=== PATIENT | female | born 1975 | race Hispanic/Latino ===

== ENCOUNTER 2018-08-29 16:18 | Emergency (ER) | payer OTHER ==
[2018-08-29 16:34] VITALS: O2SAT 100
[2018-08-29] MEDS ORDERED: Clindamycin 600mg/50ml D5W 600 MG/50 ML VIAL IVPB STA (17:18)
[2018-08-29] MEDS ORDERED: Tmp-Smz 800 mg-160 mg DS Tab PO STA (17:19)
[2018-08-29 17:34] LABS: BASO # 0.1 K/uL (0.0-0.2); BASO % 0.7 % (0.0-2.0); EOS # 0.2 K/uL (0.0-0.7); EOS % 2.6 % (0.0-4.0); HEMOGLOBIN 14.4 g/dL (12.0-16.0); LYMPH # 1.3 K/uL (1.0-4.3); LYMPH % 16.7 % (20.0-40.0); MEAN CORPUSCULAR HEMOGLOBIN 32.6 pg (27.0-31.0); MEAN PLATELET VOLUME 7.6 fl (7.2-11.7); MONO # 0.8 K/uL (0.0-0.8); MONO % 10.2 % (0.0-10.0); NEUT # 5.3 K/uL (1.8-7.0); NEUT % 69.8 % (50.0-75.0); RBC 4.42 Mil/uL (3.80-5.20); RED CELL DISTRIBUTION WIDTH 12.9 % (11.5-14.5); WHITE BLOOD COUNT 7.6 K/uL (4.8-10.8)
[2018-08-29 17:53] LABS: ALB/GLOB RATIO 1.4 (1.0-2.1); ALBUMIN 4.6 g/dL (3.5-5.0); ALT/SGPT 29 U/L (9-52); AST/SGOT 34 U/L (14-36); BLOOD UREA NITROGEN 10 mg/dl (7-17); CALCIUM 9.3 mg/dL (8.4-10.2); GFR NON-AFRICAN AMERICAN > 60
[2018-08-29] MEDS ORDERED: Tmp-Smz 800 mg-160 mg DS Tab ONE (17:59)
--- NOTE | 2018-08-29 19:26 | ED PDOC ---
HPI: Skin/Bite Injury Chief Complaint (Nursing): Bite Chief Complaint (Provider): Bite History Per: Patient History/Exam Limitations: no limitations Onset/Duration Of Symptoms: Days (X2) Additional Complaint(s): 43 year old patient with no significant past medical history presents to the ED with right lower leg pain from a dog bite onset X2 days. Patient states that there is slight swelling and pain to the wound which is located to the right proximal lower leg. Patient reports that on Wednesday pm in the afternoon her dogs were by the fence. Patient reports that the dogs got excited when they saw someone walking by. Patient states that she put her leg up and her dog bit her. Patient reports that she washed the wound out and wrapped it. Patient states that she woke up on Wednesday and there was redness around her wound. Patient states she then went to an urgent care and they took and x-ray which was negative and prescribed her Cefdinir 3o0 mg. Patient started taking this medication this morning. Patient then states that she woke up this morning and the swelling and pain had increased, and the wound was foul swelling. She went to [facility] today to get tetanus and rabies shot which they didn't have, prompting h er ED visit. Patient denies fever and calf pain. PMD: None provided Past Medical History Reviewed: Historical Data, Nursing Documentation, Vital Signs Vital Signs: Last Vital Signs Temp 98.4 F 08/29/18 16:34 Pulse 61 08/29/18 16:34 Resp 17 08/29/18 16:34 BP 143/79 08/29/18 16:34 Pulse Ox 100 08/29/18 16:34 JAVIER Report Viewed: Yes - Medical History PMH: No Chronic Diseases - Surgical History Surgical History: No Surg Hx - Family History Family History: States: No Known Family Hx - Social History Current smoker - smoking cessation education provided: Yes Alcohol: None Drugs: Denies - Home Medications Home Medications: Ambulatory Orders Medication Instructions Recorded Clindamycin [Cleocin] 450 mg PO TID 7 Days cap 08/29/18 Ibuprofen [Motrin Tab] 800 mg PO Q8H PRN #30 tab 08/29/18 Sulfamethoxazole/Trimethoprim 1 tab PO Q12 #14 tab 08/29/18 [Bactrim DS 800 mg-160 mg] - Allergies Allergies/Adverse Reactions: Allergies Allergy/AdvReac Type Severity Reaction Status Date / Time Penicillins Allergy RASH Verified 08/29/18 16:32 Review of Systems ROS Statement: Except As Marked, All Systems Reviewed And Found Negative Constitutional: Negative for: Fever Musculoskeletal: Positive for: Leg Pain (lower left leg pain and swelling. Foul wound smell. ). Negative for: Other (calf pain) Physical Exam - Reviewed Nursing Documentation Reviewed: Yes Vital Signs Reviewed: Yes - Physical Exam Appears: Positive for: Well Head Exam: Positive for: ATRAUMATIC, NORMOCEPHALIC Skin: Positive for: Normal Color, Warm, Dry Eye Exam: Positive for: Normal appearance, EOMI, PERRL Cardiovascular/Chest: Positive for: Regular Rate, Rhythm. Negative for: Murmur Respiratory: Positive for: Normal Breath Sounds. Negative for: Respiratory Distress Pulses-Dorsalis Pedis (L): 2+ Pulses-Dorsalis Pedis (R): 2+ Gastrointestinal/Abdominal: Positive for: Normal Exam, Soft. Negative for: Tenderness Extremity: Positive for: Swelling (and leg redness), Other (redness around dg bite, wound is 1 cm in length with grayish scar around wound bed. The redness extends 3 fingers below the knee all the way down to ankle. ) Neurological/Psych: Positive for: Awake, Alert, Normal Tone - Laboratory Results Result Diagrams: 08/29/18 17:20 08/29/18 17:20 Lab Results: Total Bilirubin 0.5 mg/dl (0.2-1.3) 08/29/18 17:20 AST 34 U/L (14-36) 08/29/18 17:20 ALT 29 U/L (9-52) 08/29/18 17:20 Alkaline Phosphatase 130 U/L (38-126) H 08/29/18 17:20 Total Protein 7.8 G/DL (6.3-8.2) 08/29/18 17:20 Albumin 4.6 g/dL (3.5-5.0) 08/29/18 17:20 Globulin 3.2 gm/dL (2.2-3.9) 08/29/18 17:20 Albumin/Globulin Ratio 1.4 (1.0-2.1) 08/29/18 17:20 - ECG O2 Sat by Pulse Oximetry: 100 (RA) Pulse Ox Interpretation: Normal Medical Decision Making Medical Decision Making: Time: 16:56 Initial Impression:Dog bite, cellulites Plan: Case discussed with Dr. Sampson -Complete metabolic panel -CBC with Differential -bactrim 1 tab PO -Cleocin 600 mg in 50 ml IVPB -Blood culture -Wound culture and Gram stain -IV insertation -re-evaluate 19:35 labs reviewed by provider, WBC 7.6. Patient was encouraged to return to ED in 48-72 hours for wound check. Wound is cleaned and wrapped. Patient was given Motrin prior to discharge for pain. Patient was also encouraged to stop taking Cefdinir and and was given a prescription to continue bactrim, and Clindamycin. Patient states that she understand and agrees with plan. Patient was encouraged to return if fever, pain, swelling, redness increases to right lower leg. Scribe Attestation: Documented by Luis Benitez, acting as a scribe Mc MORAN Provider Scribe Attestation: All medical record entries made by the Scribe were at my direction and personally dictated by me. I have reviewed the chart and agree that the record accurately reflects my personal performance of the history, physical exam, medical decision making, and the department course for this patient. I have also personally directed, reviewed, and agree with the discharge instructions and disposition. Disposition - Clinical Impression Clinical Impression: Animal bite wound, Cellulitis - Patient ED Disposition Is Patient to be Admitted: No Counseled Patient/Family Regarding: Diagnosis, Need For Followup, Rx Given - Disposition Disposition: Routine/Home Disposition Time: 19:29 Condition: STABLE Prescriptions: Clindamycin [Cleocin] 450 mg PO TID 7 Days cap Ibuprofen [Motrin Tab] 800 mg PO Q8H PRN #30 tab PRN Reason: Pain, Moderate (4-7) Sulfamethoxazole/Trimethoprim [Bactrim DS 800 mg-160 mg] 1 tab PO Q12 #14 tab Instructions: Animal Bites (DC), Cellulitis (Skin Infection), Adult (DC) Print Language: PERSIAN - POA Present On Arrival: None
[2018-08-29 20:27] VITALS: BP 133/84; PULSE 60; RESP 18; TEMP 98.8
== END 2018-08-29 19:55 | disposition home or self-care (01) ==
LOC: H.ER 16:18
DX: L03.115 Cellulitis of right lower limb (principal); T14.8XXA Other injury of unspecified body region, initial encounter; W54.0XXA Bitten by dog, initial encounter; F17.200 Nicotine dependence, unspecified, uncomplicated; Z88.0 Allergy status to penicillin